=== PATIENT | female | born 1940 | race Two or more races ===

== ENCOUNTER 2019-08-05 19:37 | Inpatient (IN) | payer MEDICARE, MEDICAID ==
[~2019-08-05] VITALS: Ht 149.9 cm; Wt 100.3 kg
--- NOTE | 2019-08-05 20:37 | NUR ---
PT TO ROOM 27 PER WHEELCHAIR. DUE TO LEVEL OF CART, 2 ASSIST TO GET HER INTO BED. PT HAS BEEN FEELING RUN DOWN OVER THE LAST FEW WEEKS, BUT TONIGHT HER COUGH IS MORE INTENSE. PT HAS A HARSH NON PRODUCTIVE COUGH. SON AT BEDSIDE TO HELP WITH TRANSLATION PATIENT SPEAKS ONLY [facility].
[2019-08-05 20:39] LABS: RAPID INFLUENZA A Negative (Negative); RAPID INFLUENZA B Negative (Negative)
[2019-08-05 20:41] LABS: BASOPHILS # (AUTO) 0.01 x10^3/uL (0-0.1); BASOPHILS % (AUTO) 0 % (0-1); EOSINOPHILS # (AUTO) 0.12 x10^3/uL (0-0.4); EOSINOPHILS % (AUTO) 1 % (1-7); LYMPHOCYTES % (AUTO) 22 % (22-44); MD NO; MEAN CORPUSCULAR HEMOGLOBIN 38.6 pg (27.0-34.8); MEAN CORPUSCULAR HGB CONC 35.4 g/dL (32.4-35.8); MEAN CORPUSCULAR VOLUME 109.1 fL (80-100); MEAN PLATELET VOLUME 7.8 fL (7.4-10.4); MONOCYTES % (AUTO) 11 % (2-9); NEUTROPHILS # (AUTO) 6.12 x10^3/uL (1.8-6.8); NEUTROPHILS % (AUTO) 66 % (42-75); PLATELET COUNT 263 x10^3/uL (130-400); RED BLOOD COUNT 2.87 x10^6/uL (3.82-5.3); RED CELL DISTRIBUTION WIDTH 13.4 % (9.6-15.2)
[2019-08-05 20:48] LABS: ALBUMIN 2.8 g/dL (3.4-5.0); ANION GAP 10 mmol/L (5-15); CALCIUM 7.4 mg/dL (8.5-10.1); CHLORIDE 83 mmol/L (98-107); CREATININE 0.72 mg/dL (0.55-1.02)
--- NOTE | 2019-08-05 20:58 | NUR ---
CRITICAL NA 116. PT UP TO BR WITH 1 ASSIST.
--- NOTE | 2019-08-05 21:06 | NUR ---
PT TO XRAY PER WHEELCHAIR. FAMILY REMAINS AT BEDSIDE.
[2019-08-05] MEDS ORDERED: SODIUM CHLORIDE 0.9% 1,000 ML IV ONE (21:28)
[2019-08-05] MEDS ORDERED: AZITHROMYCIN 500 MG in SODIUM CHLORIDE 0.9% 250 ML IV ONE (21:30)
[2019-08-05] MEDS ORDERED: SODIUM CHLORIDE FLUSH 10ML SYR IVF ONE (21:30)
[2019-08-05] MEDS ORDERED: CEFTRIAXONE PMX 1GM/50ML 50 ML IVPB ONE (21:30)
[2019-08-05 22:28] LABS: CULTURE INDICATED? YES; MICROSCOPIC INDICATED; SODIUM,URINE RANDOM 47 mmol/L
[2019-08-05] MEDS ORDERED: VALS1TAB25 PO (22:34)
[2019-08-05] MEDS ORDERED: PIOG30TA67 PO (22:34)
[2019-08-05] MEDS ORDERED: PRAV40TA2 PO (22:34)
[2019-08-05] MEDS ORDERED: LEVO100V8 PO (22:34)
[2019-08-05] MEDS ORDERED: INSU100I28 SUBD (22:34)
--- NOTE | 2019-08-05 22:37 | NUR ---
REPORT TO [facility]. URINE COLLECTED AND SENT TO LAB. IV STARTED WITHOUT DIFF, BLOOD CULTURES OBTAINED. NS INFUSION STARTED. FAMILY AT BEDSIDE.
[2019-08-05 23:17] VITALS: BP 126/73
[2019-08-05 23:38] LABS: ANION GAP 8 mmol/L (5-15); CALCIUM 7.7 mg/dL (8.5-10.1); CHLORIDE 84 mmol/L (98-107); CREATININE 0.64 mg/dL (0.55-1.02)
[2019-08-06] MEDS ORDERED: DEXTROSE 4 GM TAB.CHEW PO PRN
[2019-08-06] MEDS ORDERED: ACETAMINOPHEN 325 MG TABLET PO PRN
[2019-08-06] MEDS ORDERED: PROMETHAZINE 25 MG/ML, 1ML IM PRN
[2019-08-06] MEDS ORDERED: CEFTRIAXONE PMX 1GM/50ML 50 ML IV ONE
[2019-08-06] MEDS ORDERED: MAGNESIUM SULFATE PMX 2GM/50ML 50 ML IV ONE
[2019-08-06] MEDS ORDERED: GLUCAGON 1 MG IM PRN
[2019-08-06] MEDS ORDERED: LABETALOL 5MG/ML, 20ML IVPush PRN
[2019-08-06] MEDS ORDERED: BISACODYL 10 MG SUPP PR PRN
[2019-08-06] MEDS ORDERED: ONDANSETRON 2MG/ML, 2ML IVPush PRN
[2019-08-06] MEDS ORDERED: DEXTROSE 50%, 50ML SYRINGE IVPush PRN
[2019-08-06] MEDS ORDERED: POLYETHYLENE GLYCOL 17 GM PACKET PO PRN
[2019-08-06 00:14] LABS: ANION GAP 7 mmol/L (5-15); CALCIUM 7.5 mg/dL (8.5-10.1); CHLORIDE 85 mmol/L (98-107); CREATININE 0.59 mg/dL (0.55-1.02)
[2019-08-06 00:30] LABS: OSMOLALITY,URINE 208 mOsm/kg (500-850)
[2019-08-06] MEDS: ENOXAPARIN 40 MG/0.4 ML SQ SCH (00:32)
[2019-08-06] MEDS: CEFTRIAXONE PMX 1GM/50ML 50 ML IV SCH (00:32)
[2019-08-06] MEDS: DOXYCYCLINE 100 MG in DEXTROSE 5% 250 ML IV SCH ×2 (01:25→11:53)
[2019-08-06] MEDS ORDERED: SODIUM CHLORIDE 0.9% 1,000 ML IV SCH (01:30)
[2019-08-06 01:31] VITALS: BP 111/64
[2019-08-06] MEDS: LEVOTHYROXINE 50 MCG TABLET PO SCH (05:13)
[2019-08-06 06:10] LABS: CHLORIDE 85 mmol/L (98-107)
[2019-08-06 06:45] LABS: ALANINE AMINOTRANSFERASE 24 U/L (12-78); ALBUMIN 2.5 g/dL (3.4-5.0); ALKALINE PHOSPHATASE 124 U/L (45-117); ANION GAP 5 mmol/L (5-15); CALCIUM 7.5 mg/dL (8.5-10.1); CREATININE 0.57 mg/dL (0.55-1.02); TOTAL PROTEIN 6.5 g/dL (6.4-8.2)
[2019-08-06 07:17] LABS: BASOPHILS # (AUTO) 0.03 x10^3/uL (0-0.1); BASOPHILS % (AUTO) 0 % (0-1); EOSINOPHILS # (AUTO) 0.17 x10^3/uL (0-0.4); EOSINOPHILS % (AUTO) 2 % (1-7); LYMPHOCYTES # (AUTO) 2.14 x10^3/uL (1-3.4); LYMPHOCYTES % (AUTO) 27 % (22-44); MD NO; MEAN CORPUSCULAR HEMOGLOBIN 34.7 pg (27.0-34.8); MEAN CORPUSCULAR HGB CONC 33.9 g/dL (32.4-35.8); MEAN CORPUSCULAR VOLUME 102.3 fL (80-100); MEAN PLATELET VOLUME 7.7 fL (7.4-10.4); MONOCYTES # (AUTO) 0.96 x10^3/uL (0.2-0.8); MONOCYTES % (AUTO) 12 % (2-9); NEUTROPHILS # (AUTO) 4.74 x10^3/uL (1.8-6.8); NEUTROPHILS % (AUTO) 59 % (42-75); PLATELET COUNT 268 x10^3/uL (130-400); RED BLOOD COUNT 3.05 x10^6/uL (3.82-5.3); RED CELL DISTRIBUTION WIDTH 13.3 % (9.6-15.2)
[2019-08-06 08:17] VITALS: BP 107/61
[2019-08-06] MEDS: NEUTRA PHOS K 250 MG TABLET PO SCH ×3 (09:51→20:44)
[2019-08-06] MEDS: VALSARTAN 160 MG TABLET PO SCH (09:52)
[2019-08-06] MEDS: INSULIN LISPRO 100 UNITS/ML, PEN SQ-INSULIN SCH ×4 (09:53→20:45)
[2019-08-06] MEDS: PIOGLITAZONE 15 MG TABLET PO SCH (09:53)
[2019-08-06] MEDS: SODIUM CHLORIDE FLUSH 10ML SYR IVF SCH ×2 (09:54→20:46)
[2019-08-06] MEDS ORDERED: LATA7.5D EACHEYE (09:58)
[2019-08-06] MEDS ORDERED: PROP1DRO6 EACHEYE (09:58)
[2019-08-06 09:59] VITALS: BP 121/57
[2019-08-06] MEDS ORDERED: BENZONATATE 100 MG CAPSULE PO PRN (10:00)
[2019-08-06 14:04] VITALS: BP 110/66
[2019-08-06 19:28] VITALS: BP 101/57
[2019-08-06] MEDS: PRAVASTATIN 40 MG TABLET PO SCH (20:44)
[2019-08-06] MEDS: INSULIN GLARGINE 100 UNITS/ML, PEN SQ-INSULIN SCH (20:45)
[2019-08-07] MEDS: ENOXAPARIN 40 MG/0.4 ML SQ SCH ×2 (00:06→23:47)
[2019-08-07] MEDS: CEFTRIAXONE PMX 1GM/50ML 50 ML IV SCH ×2 (00:07→23:47)
[2019-08-07] MEDS: DOXYCYCLINE 100 MG in DEXTROSE 5% 250 ML IV SCH (00:53)
[2019-08-07] MEDS ORDERED: SODIUM CHLORIDE 0.9% 1,000 ML IV SCH (01:30)
[2019-08-07 01:51] VITALS: BP 107/62
[2019-08-07 03:18] LABS: ALANINE AMINOTRANSFERASE 25 U/L (12-78); ALBUMIN 2.4 g/dL (3.4-5.0); ANION GAP 7 mmol/L (5-15); CALCIUM 7.1 mg/dL (8.5-10.1); CHLORIDE 87 mmol/L (98-107); CREATININE 0.58 mg/dL (0.55-1.02)
[2019-08-07 03:34] LABS: ALKALINE PHOSPHATASE 116 U/L (45-117); BILIRUBIN,TOTAL 0.6 mg/dL (0.2-1.0)
[2019-08-07 03:35] LABS: TOTAL PROTEIN 6.4 g/dL (6.4-8.2)
[2019-08-07 03:43] LABS: BASOPHILS # (AUTO) 0.02 x10^3/uL (0-0.1); BASOPHILS % (AUTO) 0 % (0-1); EOSINOPHILS # (AUTO) 0.19 x10^3/uL (0-0.4); EOSINOPHILS % (AUTO) 3 % (1-7); LYMPHOCYTES # (AUTO) 2.26 x10^3/uL (1-3.4); LYMPHOCYTES % (AUTO) 31 % (22-44); MD NO; MEAN CORPUSCULAR HEMOGLOBIN 34.8 pg (27.0-34.8); MEAN CORPUSCULAR VOLUME 102.4 fL (80-100); MEAN PLATELET VOLUME 7.5 fL (7.4-10.4); MONOCYTES # (AUTO) 0.83 x10^3/uL (0.2-0.8); MONOCYTES % (AUTO) 12 % (2-9); NEUTROPHILS # (AUTO) 3.99 x10^3/uL (1.8-6.8); NEUTROPHILS % (AUTO) 55 % (42-75); PLATELET COUNT 276 x10^3/uL (130-400); RED BLOOD COUNT 2.88 x10^6/uL (3.82-5.3); RED CELL DISTRIBUTION WIDTH 13.1 % (9.6-15.2)
[2019-08-07] MEDS: LEVOTHYROXINE 50 MCG TABLET PO SCH (05:20)
[2019-08-07] MEDS: DOCUSATE 100 MG CAPSULE PO PRN ×2 (05:43→22:06)
[2019-08-07 06:59] VITALS: BP 131/74
[2019-08-07] MEDS: INSULIN LISPRO 100 UNITS/ML, PEN SQ-INSULIN SCH ×4 (07:42→21:01)
[2019-08-07] MEDS: SODIUM CHLORIDE FLUSH 10ML SYR IVF SCH ×2 (08:21→21:00)
[2019-08-07] MEDS: VALSARTAN 160 MG TABLET PO SCH (08:21)
[2019-08-07] MEDS: NEUTRA PHOS K 250 MG TABLET PO SCH ×3 (08:21→21:00)
[2019-08-07] MEDS: PIOGLITAZONE 15 MG TABLET PO SCH (08:21)
[2019-08-07] MEDS: GUAIFENESIN ER 600 MG TABLET PO SCH ×2 (11:12→21:00)
[2019-08-07] MEDS: DOXYCYCLINE 100MG TABLET PO SCH ×2 (11:46→21:00)
[2019-08-07 12:51] VITALS: BP 131/67
[2019-08-07] MEDS: SODIUM CHLORIDE 0.9% 1,000 ML IV SCH (16:10)
[2019-08-07 19:35] VITALS: BP 118/70
[2019-08-07] MEDS: PRAVASTATIN 40 MG TABLET PO SCH (21:00)
[2019-08-07] MEDS: INSULIN GLARGINE 100 UNITS/ML, PEN SQ-INSULIN SCH (21:02)
[2019-08-08] MEDS ORDERED: SODIUM CHLORIDE 0.9% 1,000 ML IV SCH ×2 (01:30→18:00)
[2019-08-08 01:36] VITALS: BP 111/64
[2019-08-08] MEDS: SODIUM CHLORIDE 0.9% 1,000 ML IV SCH (05:14)
[2019-08-08] MEDS: LEVOTHYROXINE 50 MCG TABLET PO SCH (05:14)
[2019-08-08 06:23] LABS: ANION GAP 8 mmol/L (5-15); CALCIUM 7.3 mg/dL (8.5-10.1); CHLORIDE 94 mmol/L (98-107)
[2019-08-08 06:25] LABS: CREATININE 0.45 mg/dL (0.55-1.02)
[2019-08-08 06:57] LABS: BASOPHILS # (AUTO) 0.02 x10^3/uL (0-0.1); BASOPHILS % (AUTO) 0 % (0-1); EOSINOPHILS # (AUTO) 0.17 x10^3/uL (0-0.4); EOSINOPHILS % (AUTO) 2 % (1-7); LYMPHOCYTES # (AUTO) 2.12 x10^3/uL (1-3.4); LYMPHOCYTES % (AUTO) 29 % (22-44); MD NO; MEAN CORPUSCULAR HEMOGLOBIN 34.6 pg (27.0-34.8); MEAN CORPUSCULAR HGB CONC 33.4 g/dL (32.4-35.8); MEAN CORPUSCULAR VOLUME 103.5 fL (80-100); MEAN PLATELET VOLUME 7.3 fL (7.4-10.4); MONOCYTES # (AUTO) 0.93 x10^3/uL (0.2-0.8); MONOCYTES % (AUTO) 13 % (2-9); NEUTROPHILS # (AUTO) 4.03 x10^3/uL (1.8-6.8); NEUTROPHILS % (AUTO) 55 % (42-75); PLATELET COUNT 300 x10^3/uL (130-400); RED BLOOD COUNT 2.85 x10^6/uL (3.82-5.3); RED CELL DISTRIBUTION WIDTH 13.4 % (9.6-15.2)
[2019-08-08] MEDS: INSULIN LISPRO 100 UNITS/ML, PEN SQ-INSULIN SCH ×4 (07:00→19:57)
[2019-08-08 07:11] VITALS: BP 102/55
[2019-08-08] MEDS: PIOGLITAZONE 15 MG TABLET PO SCH ×2 (08:00→09:29)
[2019-08-08] MEDS: NEUTRA PHOS K 250 MG TABLET PO SCH ×5 (09:00→21:00)
[2019-08-08] MEDS: SODIUM CHLORIDE FLUSH 10ML SYR IVF SCH ×2 (09:00→20:02)
[2019-08-08] MEDS: VALSARTAN 160 MG TABLET PO SCH (09:29)
[2019-08-08] MEDS: DOXYCYCLINE 100MG TABLET PO SCH ×2 (09:30→20:02)
[2019-08-08] MEDS: GUAIFENESIN ER 600 MG TABLET PO SCH ×2 (09:30→20:02)
[2019-08-08] MEDS: DOCUSATE 100 MG CAPSULE PO PRN (11:46)
[2019-08-08 12:19] VITALS: BP 128/68
[2019-08-08 20:00] VITALS: BP 133/73
[2019-08-08] MEDS: PRAVASTATIN 40 MG TABLET PO SCH (20:02)
[2019-08-08] MEDS: INSULIN GLARGINE 100 UNITS/ML, PEN SQ-INSULIN SCH (20:13)
[2019-08-08] MEDS: ENOXAPARIN 40 MG/0.4 ML SQ SCH (23:31)
[2019-08-08] MEDS: CEFTRIAXONE PMX 1GM/50ML 50 ML IV SCH (23:31)
[2019-08-09 03:51] VITALS: BP 131/67
[2019-08-09] MEDS: LEVOTHYROXINE 50 MCG TABLET PO SCH (05:13)
[2019-08-09] MEDS: SODIUM CHLORIDE 0.9% 1,000 ML IV SCH ×3 (05:14→23:41)
[2019-08-09 06:25] LABS: ANION GAP 5 mmol/L (5-15); CALCIUM 7.2 mg/dL (8.5-10.1); CHLORIDE 97 mmol/L (98-107); CREATININE 0.44 mg/dL (0.55-1.02)
[2019-08-09 06:50] LABS: MEAN CORPUSCULAR VOLUME 103.1 fL (80-100); MEAN PLATELET VOLUME 7.1 fL (7.4-10.4); PLATELET COUNT 295 x10^3/uL (130-400); RED BLOOD COUNT 2.61 x10^6/uL (3.82-5.3); RED CELL DISTRIBUTION WIDTH 13.4 % (9.6-15.2)
[2019-08-09] MEDS: INSULIN LISPRO 100 UNITS/ML, PEN SQ-INSULIN SCH ×4 (07:00→21:00)
[2019-08-09 07:22] LABS: BASOPHILS # (AUTO) 0.04 x10^3/uL (0-0.1); BASOPHILS % (AUTO) 1 % (0-1); EOSINOPHILS # (AUTO) 0.17 x10^3/uL (0-0.4); EOSINOPHILS % (AUTO) 2 % (1-7); LYMPHOCYTES # (AUTO) 1.92 x10^3/uL (1-3.4); LYMPHOCYTES % (AUTO) 27 % (22-44); MD SCAN; MONOCYTES # (AUTO) 0.97 x10^3/uL (0.2-0.8); MONOCYTES % (AUTO) 13 % (2-9); NEUTROPHILS # (AUTO) 4.12 x10^3/uL (1.8-6.8); NEUTROPHILS % (AUTO) 57 % (42-75)
[2019-08-09] MEDS: NEUTRA PHOS K 250 MG TABLET PO SCH ×5 (09:00→21:17)
[2019-08-09] MEDS: SODIUM CHLORIDE FLUSH 10ML SYR IVF SCH ×2 (09:00→21:17)
[2019-08-09 09:05] VITALS: BP 119/53
[2019-08-09] MEDS: PIOGLITAZONE 15 MG TABLET PO SCH (09:08)
[2019-08-09] MEDS: DOXYCYCLINE 100MG TABLET PO SCH ×2 (09:08→21:18)
[2019-08-09] MEDS: GUAIFENESIN ER 600 MG TABLET PO SCH ×2 (09:08→21:18)
[2019-08-09] MEDS: VALSARTAN 160 MG TABLET PO SCH (09:08)
[2019-08-09 12:46] VITALS: BP 110/69
[2019-08-09 18:57] VITALS: BP 129/79
[2019-08-09] MEDS: MAGNESIUM OXIDE 400 MG TABLET PO SCH (21:17)
[2019-08-09] MEDS: INSULIN GLARGINE 100 UNITS/ML, PEN SQ-INSULIN SCH (21:18)
[2019-08-09] MEDS: PRAVASTATIN 40 MG TABLET PO SCH (21:18)
[2019-08-09 21:50] LABS: OCCULT BLOOD POSITIVE (NEGATIVE)
[2019-08-09] MEDS: ENOXAPARIN 40 MG/0.4 ML SQ SCH (23:41)
[2019-08-09] MEDS: CEFTRIAXONE PMX 1GM/50ML 50 ML IV SCH (23:41)
[2019-08-10 00:32] VITALS: BP 123/68
[2019-08-10] MEDS: LEVOTHYROXINE 50 MCG TABLET PO SCH (05:19)
[2019-08-10 06:21] VITALS: BP 131/69
[2019-08-10] MEDS: INSULIN LISPRO 100 UNITS/ML, PEN SQ-INSULIN SCH ×4 (07:00→19:49)
[2019-08-10 07:19] LABS: % IRON SATURATION 16 % (20-55); ANION GAP 5 mmol/L (5-15); CALCIUM 7.5 mg/dL (8.5-10.1); CHLORIDE 98 mmol/L (98-107); CREATININE 0.38 mg/dL (0.55-1.02); IRON LEVEL 38 mcg/dL (50-170); TOTAL IRON BINDING CAPACITY 236 mcg/dL (250-450)
[2019-08-10 08:28] LABS: MEAN CORPUSCULAR HEMOGLOBIN 34.3 pg (27.0-34.8); MEAN CORPUSCULAR HGB CONC 33.4 g/dL (32.4-35.8); MEAN CORPUSCULAR VOLUME 102.8 fL (80-100); PLATELET COUNT 311 x10^3/uL (130-400); RED BLOOD COUNT 2.66 x10^6/uL (3.82-5.3); RED CELL DISTRIBUTION WIDTH 13.6 % (9.6-15.2)
[2019-08-10] MEDS: NEUTRA PHOS K 250 MG TABLET PO SCH ×5 (09:00→21:08)
[2019-08-10] MEDS: SODIUM CHLORIDE FLUSH 10ML SYR IVF SCH ×2 (09:00→21:00)
[2019-08-10] MEDS: MAGNESIUM OXIDE 400 MG TABLET PO SCH ×2 (09:10→21:08)
[2019-08-10] MEDS: PIOGLITAZONE 15 MG TABLET PO SCH (09:10)
[2019-08-10] MEDS: SODIUM CHLORIDE 1 GM TABLET PO SCH ×3 (09:10→21:08)
[2019-08-10] MEDS: DOXYCYCLINE 100MG TABLET PO SCH ×2 (09:11→21:08)
[2019-08-10] MEDS: GUAIFENESIN ER 600 MG TABLET PO SCH ×2 (09:11→21:08)
[2019-08-10] MEDS: VALSARTAN 160 MG TABLET PO SCH (09:11)
[2019-08-10 09:20] LABS: ANISOCYTOSIS 1+; BASOPHILS # (AUTO) 0.04 x10^3/uL (0-0.1); BASOPHILS % (AUTO) 1 % (0-1); EOSINOPHILS # (AUTO) 0.24 x10^3/uL (0-0.4); EOSINOPHILS % (AUTO) 3 % (1-7); LYMPHOCYTES # (AUTO) 2.13 x10^3/uL (1-3.4); LYMPHOCYTES % (AUTO) 30 % (22-44); MD MORPH REVIEW ONLY; MONOCYTES # (AUTO) 0.84 x10^3/uL (0.2-0.8); MONOCYTES % (AUTO) 12 % (2-9); NEUTROPHILS # (AUTO) 3.88 x10^3/uL (1.8-6.8); NEUTROPHILS % (AUTO) 54 % (42-75)
[2019-08-10 09:23] LABS: <PLATELET ESTIMATE> ADEQUATE; <PLT MORPHOLOGY> NORMAL PLT MORPH
[2019-08-10 09:24] LABS: ROULEAUX 1+
[2019-08-10] MEDS: SODIUM CHLORIDE 0.9% 1,000 ML IV SCH ×2 (11:24→21:07)
[2019-08-10 12:08] VITALS: BP 111/68
[2019-08-10] MEDS ORDERED: FERROUS SULFATE 325 MG TABLET PO SCH (14:00)
[2019-08-10] MEDS: ASCORBIC ACID 500 MG TABLET PO SCH (15:25)
[2019-08-10 18:27] VITALS: BP 145/76
[2019-08-10] MEDS: INSULIN GLARGINE 100 UNITS/ML, PEN SQ-INSULIN SCH (21:08)
[2019-08-10] MEDS: PRAVASTATIN 40 MG TABLET PO SCH (21:08)
[2019-08-11] MEDS: CEFTRIAXONE PMX 1GM/50ML 50 ML IV SCH (00:19)
[2019-08-11 01:24] VITALS: BP 98/61
[2019-08-11] MEDS: LEVOTHYROXINE 50 MCG TABLET PO SCH (05:21)
[2019-08-11 06:28] LABS: ANION GAP 6 mmol/L (5-15); CALCIUM 7.4 mg/dL (8.5-10.1); CHLORIDE 100 mmol/L (98-107)
[2019-08-11 06:29] LABS: CREATININE 0.39 mg/dL (0.55-1.02)
[2019-08-11 06:44] VITALS: BP 144/68
[2019-08-11 06:59] LABS: MEAN CORPUSCULAR HEMOGLOBIN 34.5 pg (27.0-34.8); MEAN CORPUSCULAR HGB CONC 33.4 g/dL (32.4-35.8); MEAN CORPUSCULAR VOLUME 103.6 fL (80-100); MEAN PLATELET VOLUME 6.9 fL (7.4-10.4); PLATELET COUNT 308 x10^3/uL (130-400); RED BLOOD COUNT 2.47 x10^6/uL (3.82-5.3); RED CELL DISTRIBUTION WIDTH 14.1 % (9.6-15.2)
[2019-08-11] MEDS: INSULIN LISPRO 100 UNITS/ML, PEN SQ-INSULIN SCH ×2 (07:00→10:46)
[2019-08-11 07:11] LABS: BASOPHILS # (AUTO) 0.03 x10^3/uL (0-0.1); BASOPHILS % (AUTO) 1 % (0-1); EOSINOPHILS # (AUTO) 0.36 x10^3/uL (0-0.4); EOSINOPHILS % (AUTO) 6 % (1-7); LYMPHOCYTES # (AUTO) 1.89 x10^3/uL (1-3.4); LYMPHOCYTES % (AUTO) 33 % (22-44); MD SCAN; MONOCYTES % (AUTO) 10 % (2-9); NEUTROPHILS # (AUTO) 2.91 x10^3/uL (1.8-6.8); NEUTROPHILS % (AUTO) 50 % (42-75)
[2019-08-11] MEDS: NEUTRA PHOS K 250 MG TABLET PO SCH ×2 (08:29→08:41)
[2019-08-11] MEDS: MAGNESIUM OXIDE 400 MG TABLET PO SCH (08:40)
[2019-08-11] MEDS: ASCORBIC ACID 500 MG TABLET PO SCH (08:40)
[2019-08-11] MEDS: SODIUM CHLORIDE 1 GM TABLET PO SCH (08:40)
[2019-08-11] MEDS: SODIUM CHLORIDE 0.9% 1,000 ML IV SCH (08:40)
[2019-08-11] MEDS: PIOGLITAZONE 15 MG TABLET PO SCH (08:40)
[2019-08-11] MEDS: DOXYCYCLINE 100MG TABLET PO SCH (08:41)
[2019-08-11] MEDS: VALSARTAN 160 MG TABLET PO SCH (08:41)
[2019-08-11] MEDS: SODIUM CHLORIDE FLUSH 10ML SYR IVF SCH (08:41)
[2019-08-11] MEDS: GUAIFENESIN ER 600 MG TABLET PO SCH (08:41)
[2019-08-11] MEDS ORDERED: VALS160T27 PO (09:19)
[2019-08-11] MEDS ORDERED: FERR-51 PO (09:19)
[2019-08-11] MEDS ORDERED: ASCO500T6 PO (09:19)
[2019-08-11] MEDS ORDERED: MAGN400T50 PO (09:19)
[2019-08-11] MEDS ORDERED: OMEP-110 PO (09:24)
[2019-08-11] MEDS ORDERED: FLU VACC QS2019-20 36MOS UP/PF 0.5 ML IM-VACC ONE (12:00)
== END 2019-08-11 12:25 | disposition home or self-care (01) | DRG 643 ==
LOC: ED 21:24 → EDIP 22:24 → 4EST 23:07 → DCLOUNGE 08-11 12:17
PROVIDERS: ADMIT Internal Medicine; ATTEND Family Medicine
DX: E22.2 Syndrome of inappropriate secretion of antidiuretic hormone (principal); J15.9 Unspecified bacterial pneumonia; D53.9 Nutritional anemia, unspecified; D50.9 Iron deficiency anemia, unspecified; E03.9 Hypothyroidism, unspecified; E11.9 Type 2 diabetes mellitus without complications; E78.5 Hyperlipidemia, unspecified; E83.39 Other disorders of phosphorus metabolism; E83.42 Hypomagnesemia; E86.1 Hypovolemia; Z90.710 Acquired absence of both cervix and uterus; I10 Essential (primary) hypertension; H40.9 Unspecified glaucoma; Z28.21 Immunization not carried out because of patient refusal; T50.2X5A Adverse effect of carbonic-anhydrase inhibitors, benzothiadiazides and other diuretics, initial encounter
CPT/HCPCS: 36415; 71045; 71046; 80048; 80053; 81001; 82040; 82272; 82607; 82728; 82962; 83540; 83550; 83605; 83735; 83930; 83935; 84100; 84145; 84295; 84300; 84443; 85025; 87040; 87086; 87400; 93005; 93306; 96374; 96375; 96376; G0378; J0696; J1650; J7060; J1815; J3475; J7030

== ENCOUNTER 2019-12-08 06:04 | Day surgery (SDC) | payer MEDICARE, MEDICAID ==
[2019-12-05 09:04] VITALS: BP 153/80
[~2019-12-08] VITALS: Ht 149.9 cm; Wt 86.5 kg
[~2019-12-08 06:04] MED LIST: ASCO500T9 PO; ASCO500T93 PO; FERR-46 PO; FERR-51 PO; INSU100I28 SUBD; LATA7.5D EACHEYE; LEVO100V8 PO; MAGN400T50 PO; MAGN400T9 PO; OMEP-110 PO; PIOG30TA67 PO; PRAV20TA2 PO; PRAV40TA2 PO; PROP1DRO6 EACHEYE; VALS160T27 PO; VALS160T3 PO; VALS1TAB25 PO
[2019-12-08] MEDS ORDERED: LACTATED RINGERS 1,000 ML IV SCH (06:42)
[2019-12-08] MEDS ORDERED: FENTANYL PF 100 MCG/2ML ONE (07:05)
[2019-12-08] MEDS ORDERED: PROPOFOL 50 ML ONE (07:06)
[2019-12-08] MEDS ORDERED: CHLORHEXIDINE 15 ML UDC ONE (07:27)
[2019-12-08] MEDS ORDERED: PROPOFOL 10 MG/ML, 20ML ONE (08:00)
[2019-12-08] MEDS ORDERED: hydrALAzine 20 MG/ML, 1ML ONE (09:17)
[2019-12-08] MEDS ORDERED: ONDANSETRON 2MG/ML, 2ML IVPush PRN (09:30)
[2019-12-08] MEDS ORDERED: hydrALAzine 20 MG/ML, 1ML IV PRN (09:30)
== END 2019-12-08 10:25 | disposition home or self-care (01) ==
LOC: OUT 06:04
PROVIDERS: ATTEND Internal Medicine Gastroenterology
DX: R19.5 Other fecal abnormalities (principal); Z11.59 Encounter for screening for other viral diseases; K62.1 Rectal polyp; K63.5 Polyp of colon; K29.50 Unspecified chronic gastritis without bleeding; E11.9 Type 2 diabetes mellitus without complications; I10 Essential (primary) hypertension; Z79.4 Long term (current) use of insulin; Z79.899 Other long term (current) drug therapy; Z72.89 Other problems related to lifestyle; Z90.710 Acquired absence of both cervix and uterus; Z98.890 Other specified postprocedural states; Z82.49 Family history of ischemic heart disease and other diseases of the circulatory system
CPT/HCPCS: 36415; 43239; 45380; 45385; 80053; 82962; 87635; 88305; 93005; J0360; J2704; J3010; J7120

== ENCOUNTER 2020-11-01 07:55 | Inpatient (IN) | payer MEDICARE, MEDICAID ==
[~2020-11-01] VITALS: Ht 149.9 cm; Wt 99.8 kg
--- NOTE | 2020-11-01 08:23 | NUR ---
PT TO ROOM FROM TRIAGE, CHANGED INTO GOWN. MONITORS IN PLACE. SON AT BS. SON STATES SINCE THURSDAY, PT HAS BEEN WEAK/LETHARGIC AND DISORIENTED. CALL LIGHT WITHIN REACH
--- NOTE | 2020-11-01 08:43 | NUR ---
XRAY AT BS
[2020-11-01 09:10] LABS: MEAN CORPUSCULAR HEMOGLOBIN 34.4 pg (27.0-34.8); MEAN CORPUSCULAR HGB CONC 34.8 g/dL (32.4-35.8); MEAN PLATELET VOLUME 8.7 fL (7.4-10.4); PLATELET COUNT 197 x10^3/uL (130-400); RED BLOOD COUNT 3.41 x10^6/uL (3.82-5.3); RED CELL DISTRIBUTION WIDTH 17.5 % (9.6-15.2)
--- NOTE | 2020-11-01 09:14 | NUR ---
TASK RN: PT LAYING ON [place], WHILE US CONTINUES STUDY, NAD, NO NEEDS AT THIS TIME, SON AT BS, CALL LIGHT WITHIN REACH.
[2020-11-01 09:22] LABS: ALBUMIN 1.9 g/dL (3.4-5.0); ANION GAP 8 mmol/L (5-15); CALCIUM 7.8 mg/dL (8.5-10.1); CHLORIDE 95 mmol/L (98-107)
[2020-11-01 09:26] LABS: INTERNATIONAL NORMALIZED RATIO 1.21 (0.93-1.1); PROTHROMBIN TIME 12.9 Seconds (9.6-11.5)
[2020-11-01 09:29] LABS: ALANINE AMINOTRANSFERASE 56 U/L (12-78); ALKALINE PHOSPHATASE 498 U/L (45-117)
[2020-11-01 09:30] LABS: CREATININE 0.73 mg/dL (0.55-1.02); TOTAL PROTEIN 6.1 g/dL (6.4-8.2)
[2020-11-01] MEDS ORDERED: SODIUM CHLORIDE FLUSH 10ML SYR IVF ONE (09:30)
[2020-11-01 09:32] LABS: BILIRUBIN,TOTAL 21.2 mg/dL (0.2-1.0)
[2020-11-01] MEDS ORDERED: LEVO50TA91 PO (09:35)
[2020-11-01] MEDS ORDERED: LANS30CA PO (09:35)
[2020-11-01 09:50] LABS: MICROSCOPIC INDICATED
[2020-11-01 09:55] LABS: MD YES
[2020-11-01 09:56] LABS: ACETONE, SERUM Negative (Negative)
[2020-11-01 09:58] LABS: BAND#(MANUAL) 0.52 x10^3/uL; BANDS%(MANUAL) 4 % (0-7); LYMPH#(MANUAL) 1.43 x10^3/uL (1-3.4); LYMPHS% (MANUAL) 11 % (22-44); MONOS% (MANUAL) 10 % (2-9); SEG#(MANUAL) 9.75 x10^3/uL (1.8-6.8); SEGS% (MANUAL) 75 % (42-75)
[2020-11-01 09:59] LABS: ANISOCYTOSIS 1+; POLYCHROMASIA 1+; TARGET CELLS 1+
[2020-11-01 10:00] LABS: <PLATELET ESTIMATE> ADEQUATE; <PLT MORPHOLOGY> NORMAL PLT MORPH
--- NOTE | 2020-11-01 11:05 | NUR ---
PT LAYING ON ABHINAV HECK/YUNG. SON AT BS. COMFORT MEASURES PROVIDED. CALL LIGHT WITHIN REACH
--- NOTE | 2020-11-01 11:47 | NUR ---
PT TO MRI
[2020-11-01] MEDS ORDERED: LABETALOL 5MG/ML, 20ML IVPush PRN (12:00)
[2020-11-01] MEDS ORDERED: SODIUM CHLORIDE 0.9% 1,000 ML IV ONE (12:00)
[2020-11-01] MEDS ORDERED: ONDANSETRON 2MG/ML, 2ML IVPush PRN ×2 (12:00→15:30)
[2020-11-01] MEDS ORDERED: SODIUM CHLORIDE FLUSH 10ML SYR IVF PRN (12:00)
[2020-11-01] MEDS ORDERED: MELATONIN 5 MG TABLET PO PRN (12:00)
--- NOTE | 2020-11-01 12:16 | NUR ---
LUNCH BREAK NOTE: PT BACK FROM MRI. FLUIDS RESTARTED.
--- NOTE | 2020-11-01 13:05 | NUR ---
PT TO CT
[2020-11-01] MEDS ORDERED: OMNIPAQUE 350 MG/ML, 100ML BOTTLE ONE (13:32)
--- NOTE | 2020-11-01 13:34 | NUR ---
Pt to be admitted to [facility], [id number]. Report called to [facility].
[2020-11-01 14:32] VITALS: BP 101/68
[2020-11-01 14:33] VITALS: BP 101/68
[2020-11-01] MEDS ORDERED: FENTANYL PF 100 MCG/2ML IV PRN (15:30)
[2020-11-01] MEDS ORDERED: DIAZEPAM 5 MG/ML, 2ML IVPush PRN (15:30)
[2020-11-01] MEDS ORDERED: DIPHENHYDRAMINE 50 MG/ML, 1ML IVPush PRN (15:30)
[2020-11-01] MEDS ORDERED: morphine SULFATE 10 MG/ML, 1ML IVPush PRN (15:30)
[2020-11-01] MEDS ORDERED: EPHEDRINE 50 MG/ML, 1ML IM PRN (15:30)
[2020-11-01] MEDS ORDERED: MEPERIDINE/PF 25MG/0.5ML IVPush PRN (15:30)
[2020-11-01] MEDS ORDERED: LABETALOL 5MG/ML, 20ML IV PRN (15:30)
[2020-11-01] MEDS ORDERED: EPHEDRINE 50 MG/ML, 1ML IVPush PRN (15:30)
[2020-11-01] MEDS ORDERED: OXYcodone 5 MG/5 ML ORAL.SOL UDC PO PRN (15:30)
[2020-11-01] MEDS ORDERED: PROMETHAZINE 25 MG/ML, 1ML IVPush PRN (15:30)
[2020-11-01] MEDS ORDERED: OMNIPAQUE 350 MG/ML, 50 ML BOTTLE ONE (15:42)
[2020-11-01] MEDS ORDERED: ROCURONIUM 10MG/ML,5ML ONE (15:47)
[2020-11-01] MEDS ORDERED: PROPOFOL 10 MG/ML, 20ML ONE (15:47)
[2020-11-01] MEDS ORDERED: SUCCINYLCHOLINE 20 MG/ML, 10ML ONE (15:47)
[2020-11-01] MEDS ORDERED: FENTANYL PF 100 MCG/2ML ONE (15:47)
[2020-11-01] MEDS ORDERED: ONDANSETRON 2MG/ML, 2ML ONE (15:47)
[2020-11-01] MEDS ORDERED: PIPERACILLIN/TAZO 3.375 GM VIAL ONE (16:15)
[2020-11-01] MEDS ORDERED: PIPERACILLIN/TAZO 3.375 GM in DEXTROSE 5% 100 ML IVPB ONE (16:15)
[2020-11-01 19:33] VITALS: BP 94/53
[2020-11-02] MEDS: PIPERACILLIN/TAZO 3.375 GM in DEXTROSE 5% 50 ML IVPB SCH ×3 (00:02→15:29)
[2020-11-02 01:27] VITALS: BP 84/51
[2020-11-02 05:03] LABS: BASOPHILS % (AUTO) 0 % (0-1); EOSINOPHILS % (AUTO) 1 % (1-7); LYMPHOCYTES % (AUTO) 24 % (22-44); MEAN CORPUSCULAR HEMOGLOBIN 34.6 pg (27.0-34.8); MEAN CORPUSCULAR HGB CONC 34.9 g/dL (32.4-35.8); MEAN PLATELET VOLUME 8.5 fL (7.4-10.4); MONOCYTES % (AUTO) 10 % (2-9); NEUTROPHILS % (AUTO) 65 % (42-75); PLATELET COUNT 190 x10^3/uL (130-400); RED BLOOD COUNT 3.09 x10^6/uL (3.82-5.3); RED CELL DISTRIBUTION WIDTH 17.5 % (9.6-15.2)
[2020-11-02 05:16] LABS: CHLORIDE 99 mmol/L (98-107)
[2020-11-02 05:35] LABS: ALANINE AMINOTRANSFERASE 62 U/L (12-78); ALBUMIN 1.6 g/dL (3.4-5.0); ALKALINE PHOSPHATASE 502 U/L (45-117); ANION GAP 9 mmol/L (5-15); CALCIUM 7.2 mg/dL (8.5-10.1); CHOLESTEROL, TOTAL 84 mg/dL (140-239); CREATININE 0.58 mg/dL (0.55-1.02); TOTAL PROTEIN 5.3 g/dL (6.4-8.2)
[2020-11-02 05:47] LABS: MD SCAN
[2020-11-02 05:55] LABS: CHOL/HDL RATIO 10.5; HDL CHOL % 10 % (28-40)
[2020-11-02 05:57] LABS: HDL CHOLESTEROL (DIRECT) 8 mg/dL (40-60); LDL CHOLESTEROL,CALCULATED 35 mg/dL (54-169); LDL/HDL RATIO 4.4 (0.5-3.0); TRIGLYCERIDES 204 mg/dL (50-200); VLDL CHOLESTEROL 41 mg/dL (0-25)
[2020-11-02] MEDS: LEVOTHYROXINE 50 MCG TABLET PO SCH (05:59)
[2020-11-02 08:05] VITALS: BP 97/61
[2020-11-02 12:10] VITALS: BP 93/57
[2020-11-02] MEDS ORDERED: OMNIPAQUE 350 MG/ML, 100ML BOTTLE ONE (15:08)
[2020-11-02] MEDS: INSULIN LISPRO 100 UNITS/ML, PEN SQ-INSULIN SCH ×2 (15:59→23:48)
[2020-11-02 19:25] VITALS: BP 102/61
[2020-11-03] MEDS: PIPERACILLIN/TAZO 3.375 GM in DEXTROSE 5% 50 ML IVPB SCH ×2 (00:36→09:29)
[2020-11-03 00:37] VITALS: BP 92/54
[2020-11-03] MEDS: LEVOTHYROXINE 50 MCG TABLET PO SCH (06:08)
[2020-11-03] MEDS: INSULIN LISPRO 100 UNITS/ML, PEN SQ-INSULIN SCH ×4 (07:00→21:05)
[2020-11-03 07:01] LABS: MEAN CORPUSCULAR HEMOGLOBIN 34.7 pg (27.0-34.8); MEAN PLATELET VOLUME 8.3 fL (7.4-10.4); PLATELET COUNT 205 x10^3/uL (130-400); RED BLOOD COUNT 3.15 x10^6/uL (3.82-5.3); RED CELL DISTRIBUTION WIDTH 17.8 % (9.6-15.2)
[2020-11-03 07:04] LABS: ALBUMIN 1.5 g/dL (3.4-5.0); ANION GAP 7 mmol/L (5-15); CALCIUM 7.4 mg/dL (8.5-10.1); CHLORIDE 100 mmol/L (98-107)
[2020-11-03 07:07] LABS: ALANINE AMINOTRANSFERASE 54 U/L (12-78); ALKALINE PHOSPHATASE 436 U/L (45-117); BILIRUBIN,TOTAL 12.4 mg/dL (0.2-1.0); TOTAL PROTEIN 5.4 g/dL (6.4-8.2)
[2020-11-03 07:15] VITALS: BP 103/57
[2020-11-03 07:28] LABS: MD YES
[2020-11-03 07:30] LABS: BANDS%(MANUAL) 1 % (0-7); EOS% (MANUAL) 2 % (1-7); LYMPHS% (MANUAL) 19 % (22-44); METAMYELOCYTES% (MANUAL) 2 % (0-1); MONOS% (MANUAL) 6 % (2-9); SEGS% (MANUAL) 70 % (42-75)
[2020-11-03 07:31] LABS: <PLATELET ESTIMATE> ADEQUATE; <PLT MORPHOLOGY> NORMAL PLT MORPH; ANISOCYTOSIS 1+; POLYCHROMASIA 1+; SMUDGE CELLS 1+; TARGET CELLS 1+
[2020-11-03] MEDS: CEFTRIAXONE 2 GM in DEXTROSE 5% 50 ML IVPB SCH (12:06)
[2020-11-03] MEDS ORDERED: POLYETHYLENE GLYCOL 17 GM PACKET PO ONE (13:30)
[2020-11-03] MEDS ORDERED: BISACODYL 10 MG SUPP PR PRN (13:30)
[2020-11-03] MEDS ORDERED: POLYETHYLENE GLYCOL 17 GM PACKET ONE (13:30)
[2020-11-03 14:12] VITALS: BP 111/70
[2020-11-03 21:15] VITALS: BP 112/62
[2020-11-04 02:38] VITALS: BP 115/66
[2020-11-04] MEDS: LEVOTHYROXINE 50 MCG TABLET PO SCH (04:54)
[2020-11-04 07:06] VITALS: BP 99/60
[2020-11-04] MEDS: INSULIN LISPRO 100 UNITS/ML, PEN SQ-INSULIN SCH ×4 (08:24→20:23)
[2020-11-04] MEDS ORDERED: FUROSEMIDE 20 MG/2 ML IV ONE (11:30)
[2020-11-04] MEDS: CEFTRIAXONE 2 GM in DEXTROSE 5% 50 ML IVPB SCH (11:38)
[2020-11-04 12:13] LABS: ALBUMIN 1.7 g/dL (3.4-5.0); BILIRUBIN, DIRECT 8.3 mg/dL (0.1-0.2)
[2020-11-04 12:15] LABS: BILIRUBIN,INDIRECT 1.6 mg/dL (0.0-2.0); BILIRUBIN,TOTAL 9.9 mg/dL (0.2-1.0); TOTAL PROTEIN 6.3 g/dL (6.4-8.2)
[2020-11-04 13:06] VITALS: BP 103/68
[2020-11-04 20:19] VITALS: BP 129/57
[2020-11-05] MEDS: LEVOTHYROXINE 50 MCG TABLET PO SCH (05:34)
[2020-11-05 05:52] LABS: ALANINE AMINOTRANSFERASE 52 U/L (12-78); ALBUMIN 1.7 g/dL (3.4-5.0); ANION GAP 6 mmol/L (5-15); CALCIUM 8.1 mg/dL (8.5-10.1); CHLORIDE 96 mmol/L (98-107); CREATININE 0.39 mg/dL (0.55-1.02)
[2020-11-05 05:55] LABS: ALKALINE PHOSPHATASE 388 U/L (45-117); BILIRUBIN,TOTAL 7.8 mg/dL (0.2-1.0); TOTAL PROTEIN 5.6 g/dL (6.4-8.2)
[2020-11-05 06:51] VITALS: BP 107/60
[2020-11-05] MEDS: INSULIN LISPRO 100 UNITS/ML, PEN SQ-INSULIN SCH ×2 (07:00→11:10)
[2020-11-05] MEDS ORDERED: FUROSEMIDE 40 MG/4 ML IV SCH (09:00)
[2020-11-05] MEDS: CEFTRIAXONE 2 GM in DEXTROSE 5% 50 ML IVPB SCH (11:11)
[2020-11-05 14:35] VITALS: BP 100/66
== END 2020-11-05 14:56 | disposition hospice, home (50) | DRG 444 ==
LOC: ED 09:21 → SUATTDRO 11:30 → EDIP 11:48 → 4EST 14:00
PROVIDERS: ADMIT Hospitalist; ATTEND Hospitalist
PROC: 0FD Hepatobiliary System and Pancreas, Extraction (ICD-10-PCS; 2020-11-01)
PROC: 0F798DZ Dilation of Common Bile Duct with Intraluminal Device, Via Natural or Artificial Opening Endoscopic (ICD-10-PCS; principal; 2020-11-01 16:30)
DX: K80.21 Calculus of gallbladder without cholecystitis with obstruction (principal); G93.41 Metabolic encephalopathy; E87.1 Hypo-osmolality and hyponatremia; R78.81 Bacteremia; J81.1 Chronic pulmonary edema; Z20.822 Contact with and (suspected) exposure to COVID-19; E11.9 Type 2 diabetes mellitus without complications; E03.9 Hypothyroidism, unspecified; E78.5 Hyperlipidemia, unspecified; E83.42 Hypomagnesemia; E88.09 Other disorders of plasma-protein metabolism, not elsewhere classified; B96.89 Other specified bacterial agents as the cause of diseases classified elsewhere; D49.0 Neoplasm of unspecified behavior of digestive system; D72.829 Elevated white blood cell count, unspecified; E66.9 Obesity, unspecified; E78.00 Pure hypercholesterolemia, unspecified; I11.9 Hypertensive heart disease without heart failure; K44.9 Diaphragmatic hernia without obstruction or gangrene; K76.0 Fatty (change of) liver, not elsewhere classified; Z90.710 Acquired absence of both cervix and uterus; Z79.899 Other long term (current) drug therapy; Z79.891 Long term (current) use of opiate analgesic; Z79.01 Long term (current) use of anticoagulants; Z87.01 Personal history of pneumonia (recurrent); Z98.49 Cataract extraction status, unspecified eye
CPT/HCPCS: 36415; 71045; 74170; 74177; 74181; 74330; 76700; 80053; 80061; 80076; 81001; 82010; 82105; 82248; 82378; 82962; 83036; 83605; 83690; 83735; 83880; 84100; 84443; 85025; 85610; 85730; 86301; 87040; 87077; 87086; 87186; 87635; 88112; 93005; 99285; G0378; J0696; J1940; J2405; J2543; J2704; J3010; Q9967; C1769; C1894; C2625; J0330; J1815; J7030